=== PATIENT | female | born 1965 | race Caucasian/White ===

== ENCOUNTER 2024-01-02 19:22 | Emergency (ER) | payer BC, OTHER ==
[~2024-01-02] VITALS: Ht 154.9 cm; Wt 63.5 kg
[~2024-01-02 19:22] MED LIST: CEFDINIR300 MG PO; MELOXICAM7.5 MG PO; ONDANSETRON ODT4 MG SL; PANTOPRAZOLE SO40 MG PO; ULTRAM 50MG50 MG PO
[2024-01-02 20:56] LABS: BASOPHILS % 0.2 % (0.0-1.0); EOSINOPHILS # (AUTO) 0.1 (0.0-0.4); EOSINOPHILS % 0.7 % (0.0-6.0); HEMATOCRIT 50.1 % (34.2-44.1); MEAN CORPUSCULAR HEMOGLOBIN 29.2 pg (28-32); MEAN CORPUSCULAR HGB CONC 31.9 g/dL (31-35); MEAN CORPUSCULAR VOLUME 91.4 fL (81-99); MONOCYTES # (AUTO) 0.5 (0.2-0.8); MONOCYTES % 3.9 % (4.4-11.3); NEUTROPHILS # (AUTO) 10.8 (2.1-6.9); PLATELET COUNT 372 x10e3/uL (140-360); RED BLOOD COUNT 5.48 x10e6/uL (3.6-5.1); RED CELL DISTRIBUTION WIDTH 13.7 % (11.7-14.4); WHITE BLOOD COUNT 12.43 x10e3/uL (4.8-10.8)
[2024-01-02 21:08] LABS: ALANINE AMINOTRANSFERASE 13 IU/L (0-55); ALBUMIN 4.5 g/dL (3.5-5.0); ALBUMIN/GLOBULIN RATIO 1.1 (0.8-2.0); ALKALINE PHOSPHATASE 82 IU/L (40-150); ANION GAP 14.7 mmol/L (8-16); BILIRUBIN,TOTAL 0.5 mg/dL (0.2-1.2); BLOOD UREA NITROGEN 16 mg/dL (7-26); BUN/CREATININE RATIO 22 (6-25); CALCIUM 9.8 mg/dL (8.4-10.2); CARBON DIOXIDE 24 mmol/L (22-29); CHLORIDE 106 mmol/L (98-107); CREATINE KINASE 81 IU/L (29-168); CREATININE, SERUM 0.73 mg/dL (0.57-1.11); EST GLOMERULAR FILTRATION RATE 95 ML/MIN (>=60); GLUCOSE 101 mg/dL (74-118); POTASSIUM 3.7 mmol/L (3.5-5.1); SODIUM 141 mmol/L (136-145); TOTAL PROTEIN 8.6 g/dL (6.5-8.1)
[2024-01-02 21:09] LABS: BILIRUBIN,URINE 3+ (NEGATIVE); CLARITY,URINE CLEAR (CLEAR); COLOR,URINE YELLOW (YELLOW); GLUCOSE, URINE NEGATIVE (NEGATIVE); KETONES,URINE 2+ (NEGATIVE); LEUKOCYTE ESTERASE ,URINE NEGATIVE (NEGATIVE); NITRITE,URINE NEGATIVE (NEGATIVE); PH,URINE 5.5 (5 - 7); PROTEIN,URINE DIPSTICK 1+ (NEGATIVE); URINE UROBILINOGEN 0.2 mg/dL (0.2 - 1)
[2024-01-02] MEDS ORDERED: IOPAMIDOL 370 MG/ML 100 ML INFUS..BTL INJ ONE (21:24)
[2024-01-02 21:25] LABS: TROPONIN I < 0.001 ng/mL (0-0.300)
[2024-01-02] MEDS: ONDANSETRON HCL INJ 2MG/ML 2ML 2 MG/ML VIAL IV STA (21:28)
[2024-01-02 21:29] LABS: BACTERIA,URINE MODERATE /HPF; RBC,URINE 0-5 /HPF (0-5)
[2024-01-02] MEDS: SODIUM CHLORIDE 0.9% 1000ML 1,000 ML IV ONE (21:29)
[2024-01-02 21:30] LABS: EPITHELIAL CELLS,URINE MODERATE /LPF; MUCUS,URINE MANY (RARE)
[2024-01-02] MEDS ORDERED: DICYCLOMINE HCL20 MG PO (23:14)
[2024-01-02] MEDS ORDERED: MACROBID 100 M100 MG PO (23:14)
[2024-01-02 23:38] VITALS: BP 142/84; PULSE 72; RESP 18; TEMP 98.2; O2SAT 100
== END 2024-01-02 23:22 | disposition home or self-care (01) ==
LOC: ER 19:35
DX: R11.2 Nausea with vomiting, unspecified (principal); N39.0 Urinary tract infection, site not specified; R10.13 Epigastric pain; R19.7 Diarrhea, unspecified
CPT/HCPCS: 36415; 74177; 80053; 81001; 82550; 83690; 84484; 85025; 93005; 99284; C9113; J2405; J7030; Q9967